=== PATIENT | female | born 1965 | race American Indian/Alaskan Native ===

== ENCOUNTER 2016-12-09 08:39 | Outpatient (CLI) | payer MEDICAID ==
--- NOTE | 2016-12-09 09:44 | Mammography Report ---
Screening mammogram: Baseline examination. Routine views demonstrate a heterogeneous dense pattern which is symmetric in distribution. There is a circumscribed 7.5 mm nodule in the superolateral left breast. The findings are not otherwise remarkable. CAD used. Impression: Focal left breast asymmetry. Recommendation: Left breast ultrasound. If this is not a simple cyst compression mammography recommended. BI-RADS CATEGORY: 0 = Needs additional imaging evaluation ACR BI-RADS MAMMOGRAPHIC CODES: 0 = Needs additional imaging evaluation; 1 = Negative; 2 = Benign; 3 = Probably benign; 4 = Suspicious; 5 = Malignant; 6 = Known biopsy-proven malignancy COMMENT: 1. Dense breast tissue, i.e., adenosis, fibrocystic changes, etc., may obscure an underlying neoplasm. 2. Approximately 10% of cancers are not detected with mammography. 3. A negative mammography report should not delay biopsy if a clinically suspicious mass is present.
== END 2016-12-09 08:40 | disposition home or self-care (01) ==
LOC: SPVWC 08:39
PROVIDERS: ATTEND Hospitalist
DX: Z12.31 Encounter for screening mammogram for malignant neoplasm of breast (principal); F17.200 Nicotine dependence, unspecified, uncomplicated
CPT/HCPCS: 77067; G0202

== ENCOUNTER 2017-01-16 08:48 | Outpatient (CLI) | payer MEDICAID ==
--- NOTE | 2017-01-16 10:27 | Ultrasound Report ---
LEFT BREAST ULTRASOUND: 01/16/17 08:48:00 CLINICAL: Recall to evaluate an upper outer nodule identified screening. COMPARISON: 12/09/16 mammogram FINDINGS: Ultrasound of the upper outer left breast was performedand demonstrated a benign intraparenchymal lymph node at 1 o'clock 7 cm from the nipple measuring 6 x 5 x 3 mm. It has central fat and correlates with the mammographic finding. No mass or cyst. IMPRESSION: A benign intraparenchymal lymph node at 1 o'clock left breast. BI-RADS 2 - - Benign RECOMMENDATION: Routine mammographic screening.
== END 2017-01-16 08:49 | disposition home or self-care (01) ==
LOC: SPVWC 08:48
PROVIDERS: ATTEND Hospitalist
DX: R92.8 Other abnormal and inconclusive findings on diagnostic imaging of breast (principal); F17.200 Nicotine dependence, unspecified, uncomplicated